=== PATIENT | female | born 1995 | race Caucasian/White ===

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

== ENCOUNTER → 2017-01-09 | Outpatient (REF) | payer BC, MEDICAID ==
[~2017-01-09] MED LIST changes: -COLA100C PO; +COLA100C3 PO
[2017-01-09 17:32] LABS: BASO % 0.2 % (0.0-1.0); EOS # 0.2 K/mm3 (0.0-0.50); EOS % 1.4 % (0.0-3.0); LYMPH # 2.6 K/mm3 (1.5-6.5); MEAN CORPUSCULAR HEMOGLOBIN 29.3 pg (27.0-33.0); MEAN CORPUSCULAR HGB CONC 33.4 g/dl (32.0-36.5); MEAN CORPUSCULAR VOLUME 87.8 fl (80.0-96.0); MONO # 0.4 K/mm3 (0.0-0.8); MONO % 3.3 % (0.0-5.0); NEUTROPHILS # 8.6 K/mm3 (1.8-7.7); RED CELL DISTRIBUTION WIDTH 13.1 % (11.5-14.5)
[2017-01-09 18:30] LABS: FOLATE 5.8 NG/ML; VITAMIN B12 LEVEL 408 PG/ML
[2017-01-09 19:15] LABS: ALBUMIN 3.7 GM/DL (3.2-5.2); ALBUMIN/GLOBULIN RATIO 1.06 (1.00-1.93); ALKALINE PHOSPHATASE 125 U/L (45-117); ALT/SGPT 29 U/L (12-78); ANION GAP 11 MEQ/L (8-16); AST/SGOT 15 U/L (15-37); BILIRUBIN,TOTAL 0.4 MG/DL (0.2-1.0); BLOOD UREA NITROGEN 8 MG/DL (7-18); CALCIUM LEVEL 8.8 MG/DL (8.5-10.1); CARBON DIOXIDE LEVEL 22 MEQ/L (21-32); CHLORIDE LEVEL 104 MEQ/L (98-107); CREATININE FOR GFR 0.56 MG/DL (0.55-1.02); FERRITIN 38 NG/ML (8-252); GLUCOSE, FASTING 63 MG/DL (70-105); MAGNESIUM LEVEL 1.7 MG/DL (1.4-2.0); PHOSPHORUS LEVEL 3.4 MG/DL (2.5-4.9); SODIUM LEVEL 137 MEQ/L (136-145); TOTAL PROTEIN 7.2 GM/DL (6.4-8.2)
[2017-01-12 13:44] LABS: ALBUMIN % 52.9 % (55.8-66.1)
[2017-01-12 13:45] LABS: ALBUMIN 3.81 GM/DL (3.29-5.55); GAMMA GLOBULIN % 15.8 % (11.1-18.8)
[2017-01-13 00:06] LABS: Lyme Disease IgG/IgM Antibodie <0.91 ISR (0.00-0.90); Lyme Disease IgM Ab Quantitati <0.80 index (0.00-0.79)
== END ==
LOC: M LABDRAW1 16:40
PROVIDERS: ATTEND Physician Assistant Medical
DX: R53.83 Other fatigue (principal)

== ENCOUNTER → 2017-03-25 | Outpatient (CLI) | payer BC, MEDICAID ==
[~2017-03-25] MED LIST changes: -COLA100C3 PO; +COLA100C5 PO; -FOLI1TAB2 PO; +FOLI1TAB4 PO; +IBUP-1022 PO; -IBUP600T26 PO; +MICROGESTIN; +PERC5TAB12 PO; -PERC5TAB6 PO
[2017-03-25 18:47] LABS: ALBUMIN 3.7 GM/DL (3.2-5.2); ALKALINE PHOSPHATASE 124 U/L (45-117); ALT/SGPT 32 U/L (12-78); ANION GAP 7 MEQ/L (8-16); AST/SGOT 11 U/L (15-37); BILIRUBIN,TOTAL 0.3 MG/DL (0.2-1.0); BLOOD UREA NITROGEN 9 MG/DL (7-18); CALCIUM LEVEL 9.3 MG/DL (8.5-10.1); CARBON DIOXIDE LEVEL 23 MEQ/L (21-32); CHLORIDE LEVEL 106 MEQ/L (98-107); CREATININE FOR GFR 0.63 MG/DL (0.55-1.02); GLUCOSE, FASTING 83 MG/DL (70-105); POTASSIUM SERUM 3.8 MEQ/L (3.5-5.1); SODIUM LEVEL 136 MEQ/L (136-145); TOTAL PROTEIN 7.4 GM/DL (6.4-8.2)
== END ==
LOC: M LAB 16:21
PROVIDERS: ATTEND Physician Assistant Medical
DX: E27.8 Other specified disorders of adrenal gland (principal)

== ENCOUNTER → 2017-04-25 | Outpatient (REF) | payer BC, MEDICAID ==
[2017-05-10 08:06] LABS: FREE CORTISOL 24HR URINE 12 ug/24 hr (0-50); FREE CORTISOL URINE 27 ug/L (Undefined)
== END ==
LOC: M LAB REF 14:59
PROVIDERS: ATTEND Physician Assistant Medical
DX: E27.8 Other specified disorders of adrenal gland (principal)

== ENCOUNTER → 2017-04-30 | Outpatient (RCR) | payer BC, MEDICAID | LOC: M PT 04-27 13:58 | PROVIDERS: ATTEND Physician Assistant Medical | DX: Z51.89 Encounter for other specified aftercare (principal); M54.5 Low back pain ==

== ENCOUNTER 2017-05-11 11:40 | Emergency (ER) | payer BC, MEDICAID ==
[~2017-05-11] VITALS: Ht 162.6 cm; Wt 106.8 kg
[2017-05-11 11:40] VITALS: BP 157/74
[~2017-05-11 11:40] MED LIST changes: -MICROGESTIN
[2017-05-11] MEDS ORDERED: MICROGESTIN (11:51)
== END 2017-05-11 14:36 | disposition home or self-care (01) ==
LOC: M ED 11:40
DX: R21 Rash and other nonspecific skin eruption (principal); T78.40XA Allergy, unspecified, initial encounter

== ENCOUNTER 2017-05-28 14:30 | Outpatient (RCR) | payer BC, MEDICAID ==
[~2017-05-28 14:30] MED LIST changes: +MICROGESTIN
== END 2017-05-30 ==
LOC: M PT 14:30
PROVIDERS: ATTEND Physician Assistant Medical
DX: Z51.89 Encounter for other specified aftercare (principal); M54.5 Low back pain

== ENCOUNTER → 2017-10-27 | Outpatient (REF) | payer BC, MEDICAID ==
[2017-10-27 18:49] LABS: ALBUMIN 4.1 GM/DL (3.2-5.2); ALBUMIN/GLOBULIN RATIO 1.14 (1.00-1.93); ALKALINE PHOSPHATASE 108 U/L (45-117); ALT/SGPT 29 U/L (12-78); ANION GAP 10 MEQ/L (8-16); AST/SGOT 12 U/L (7-37); BILIRUBIN,TOTAL 0.4 MG/DL (0.2-1.0); BLOOD UREA NITROGEN 8 MG/DL (7-18); CALCIUM LEVEL 8.7 MG/DL (8.5-10.1); CARBON DIOXIDE LEVEL 25 MEQ/L (21-32); CHLORIDE LEVEL 108 MEQ/L (98-107); CREATININE FOR GFR 0.62 MG/DL (0.55-1.30); GLUCOSE, FASTING 84 MG/DL (70-100); POTASSIUM SERUM 3.9 MEQ/L (3.5-5.1); SODIUM LEVEL 143 MEQ/L (136-145); TOTAL PROTEIN 7.7 GM/DL (6.4-8.2)
[2017-10-27 19:19] LABS: BASO % 0.4 % (0.0-1.0); EOS # 0.1 10^3/uL (0.0-0.50); EOS % 1.4 % (0.0-3.0); HEMOGLOBIN 12.8 g/dl (12.0-16.0); IMMATURE GRANULOCYTE % 0.3 % (0-3.0); LYMPH # 2.3 10^3/uL (1.5-6.5); LYMPH % 22.9 % (24.0-44.0); MEAN CORPUSCULAR HGB CONC 33.7 g/dl (32.0-36.5); MONO # 0.6 10^3/uL (0.0-0.8); MONO % 5.7 % (0.0-5.0); NEUTROPHILS # 6.8 10^3/uL (1.8-7.7); NEUTROPHILS % 69.3 % (36.0-66.0); PLATELET COUNT, AUTOMATED 291 10^3/uL (150-450); RED BLOOD COUNT 4.42 10^6/uL (4.00-5.40); RED CELL DISTRIBUTION WIDTH 12.2 % (11.5-14.5); WHITE BLOOD COUNT 9.9 10^3/uL (4.0-10.0)
[2017-10-30 14:36] LABS: ZONISAMIDE LEVEL None Detected ug/mL (10.0-40.0)
== END ==
LOC: M LABNEURO 14:19
DX: R51 Headache (principal)
CPT/HCPCS: 80053

== ENCOUNTER → 2018-01-11 | Outpatient (REF) | payer BC, MEDICAID ==
[2018-01-11 12:59] LABS: BASO % 0.4 % (0.0-1.0); EOS # 0.2 10^3/uL (0.0-0.50); EOS % 2.2 % (0.0-3.0); HEMATOCRIT 39.3 % (36.0-47.0); HEMOGLOBIN 12.9 g/dl (12.0-15.5); IMMATURE GRANULOCYTE % 0.7 % (0-3.0); LYMPH # 2.8 10^3/uL (1.5-6.5); LYMPH % 30.2 % (24.0-44.0); MEAN CORPUSCULAR HEMOGLOBIN 28.9 pg (27.0-33.0); MEAN CORPUSCULAR HGB CONC 32.8 g/dl (32.0-36.5); MEAN CORPUSCULAR VOLUME 87.9 fl (80.0-96.0); MONO # 0.6 10^3/uL (0.0-0.8); MONO % 6.1 % (0.0-5.0); NEUTROPHILS # 5.6 10^3/uL (1.8-7.7); NEUTROPHILS % 60.4 % (36.0-66.0); PLATELET COUNT, AUTOMATED 232 10^3/uL (150-450); RED BLOOD COUNT 4.47 10^6/uL (4.00-5.40); RED CELL DISTRIBUTION WIDTH 12.4 % (11.5-14.5); WHITE BLOOD COUNT 9.4 10^3/uL (4.0-10.0)
[2018-01-11 13:07] LABS: ALBUMIN 3.7 GM/DL (3.2-5.2); ALBUMIN/GLOBULIN RATIO 1.06 (1.00-1.93); ALKALINE PHOSPHATASE 107 U/L (45-117); ALT/SGPT 27 U/L (12-78); ANION GAP 7 MEQ/L (8-16); AST/SGOT 11 U/L (7-37); BILIRUBIN,TOTAL 0.2 MG/DL (0.2-1.0); BLOOD UREA NITROGEN 10 MG/DL (7-18); CALCIUM LEVEL 8.7 MG/DL (8.5-10.1); CARBON DIOXIDE LEVEL 23 MEQ/L (21-32); CHLORIDE LEVEL 112 MEQ/L (98-107); CHOLESTEROL LEVEL 155 MG/DL (<200); CREATININE FOR GFR 0.65 MG/DL (0.55-1.30); GLUCOSE, FASTING 92 MG/DL (70-100); HDL CHOLESTEROL 50 MG/DL (>40); LDL CHOLESTEROL 84.2 MG/DL (<100); NON-HDL-C 105 MG/DL; POTASSIUM SERUM 3.9 MEQ/L (3.5-5.1); SODIUM LEVEL 142 MEQ/L (136-145); TOTAL PROTEIN 7.2 GM/DL (6.4-8.2); TRIGLYCERIDES LEVEL 104 MG/DL (<150)
[2018-01-11 13:42] LABS: HIV 1&2 SCREEN CENTAUR NEGATIVE (NEGATIVE)
[2018-01-11 14:48] LABS: ERYTHROCYTE SEDIMENTATION RATE 13 mm/hr (0-20)
== END ==
LOC: M LAB REF 12:20
DX: R70.0 Elevated erythrocyte sedimentation rate (principal); Z13.220 Encounter for screening for lipoid disorders; F34.1 Dysthymic disorder
CPT/HCPCS: 84443

== ENCOUNTER → 2019-09-21 | Outpatient (CLI) | payer BC, MEDICAID ==
[~2019-09-21] MED LIST changes: +FOLI1TAB11 PO; -FOLI1TAB4 PO
[2019-09-21 12:11] LABS: HEMOGLOBIN A1c 5.1 %
== END ==
LOC: M LAB 09:41
PROVIDERS: ATTEND Surgery
DX: Z86.39 Personal history of other endocrine, nutritional and metabolic disease (principal)

== ENCOUNTER → 2019-10-14 | Outpatient (REF) | payer BC, MEDICAID ==
[2019-10-14 20:24] LABS: CHLAMYDIA DNA AMPLIFICATION NEGATIVE (NEGATIVE); GC DNA AMPLIFICATION NEGATIVE (NEGATIVE)
== END ==
LOC: M LAB REF 18:34
PROVIDERS: ATTEND Physician Assistant
DX: Z12.4 Encounter for screening for malignant neoplasm of cervix (principal)

== ENCOUNTER → 2020-01-09 | Outpatient (CLI) | payer MEDICAID | LOC: M LABSMTC 13:29 | PROVIDERS: ATTEND Family Medicine | DX: Z11.59 Encounter for screening for other viral diseases (principal) | CPT/HCPCS: C8903; U0003 ==

== ENCOUNTER → 2020-04-18 | Outpatient (REF) | payer OTHER, MEDICAID ==
[~2020-04-18] MED LIST changes: +ENOX40IN3; +OMEP-221
[2020-04-18 14:17] LABS: ALT/SGPT 23 U/L (12-78); BILIRUBIN,TOTAL 0.5 MG/DL (0.2-1.0); BLOOD UREA NITROGEN 9 MG/DL (7-18); CALCIUM LEVEL 9.4 MG/DL (8.5-10.1); CARBON DIOXIDE LEVEL 28 MEQ/L (21-32); CHLORIDE LEVEL 104 MEQ/L (98-107); CHOLESTEROL LEVEL 168 MG/DL (<200); CHOLESTEROL RISK RATIO 4.307 (<5); CREATININE FOR GFR 0.66 MG/DL (0.55-1.30); GLOMERULAR FILTRATION RATE > 60.0 (>60); GLUCOSE, FASTING 88 MG/DL (70-100); HDL CHOLESTEROL 39 MG/DL (>40); LDL CHOLESTEROL 98 MG/DL (<100); NON-HDL-C 129 MG/DL; SODIUM LEVEL 136 MEQ/L (136-145); TOTAL PROTEIN 7.6 GM/DL (6.4-8.2); TRIGLYCERIDES LEVEL 157 MG/DL (<150)
[2020-04-18 14:21] LABS: BASO % 0.4 % (0.0-1.0); EOS # 0.2 10^3/uL (0.0-0.5); EOS % 2.5 % (0.0-3.0); HEMATOCRIT 38.9 % (36.0-47.0); HEMOGLOBIN 12.9 g/dl (12.0-15.5); LYMPH # 1.6 10^3/uL (1.5-5.0); LYMPH % 22.1 % (24.0-44.0); MEAN CORPUSCULAR HEMOGLOBIN 29.5 pg (27.0-33.0); MEAN CORPUSCULAR HGB CONC 33.2 g/dl (32.0-36.5); MEAN CORPUSCULAR VOLUME 88.8 fl (80.0-96.0); MONO # 0.4 10^3/uL (0.0-0.8); MONO % 6.2 % (0.0-5.0); NEUTROPHILS # 4.9 10^3/uL (1.5-8.5); NEUTROPHILS % 68.2 % (36.0-66.0); PLATELET COUNT, AUTOMATED 262 10^3/uL (150-450); RED BLOOD COUNT 4.38 10^6/uL (4.00-5.40); WHITE BLOOD COUNT 7.1 10^3/uL (4.0-10.0)
== END ==
LOC: M LAB REF 11:47
PROVIDERS: ATTEND Nurse Practitioner Family
DX: Z01.812 Encounter for preprocedural laboratory examination (principal); E66.09 Other obesity due to excess calories

== ENCOUNTER 2020-05-06 19:58 | Emergency (ER) | payer OTHER, MEDICAID ==
[~2020-05-06 19:58] MED LIST changes: -ENOX40IN3; -OMEP-221
[2020-05-06] MEDS ORDERED: PROTAMINE SULF 50MG/5ML VIAL (J2720 PER 10MG) IV STA (20:21)
[2020-05-06 20:43] LABS: BASO % 0.2 % (0.0-1.0); EOS # 0.1 10^3/uL (0.0-0.5); EOS % 0.8 % (0.0-3.0); HEMATOCRIT 33.4 % (36.0-47.0); HEMOGLOBIN 11.6 g/dl (12.0-15.5); LYMPH # 1.9 10^3/uL (1.5-5.0); LYMPH % 13.1 % (24.0-44.0); MEAN CORPUSCULAR HEMOGLOBIN 29.4 pg (27.0-33.0); MEAN CORPUSCULAR HGB CONC 34.7 g/dl (32.0-36.5); MEAN CORPUSCULAR VOLUME 84.6 fl (80.0-96.0); MONO # 0.9 10^3/uL (0.0-0.8); MONO % 6.1 % (0.0-5.0); NEUTROPHILS # 11.5 10^3/uL (1.5-8.5); NEUTROPHILS % 79.2 % (36.0-66.0); PLATELET COUNT, AUTOMATED 338 10^3/uL (150-450); RED BLOOD COUNT 3.95 10^6/uL (4.00-5.40); WHITE BLOOD COUNT 14.5 10^3/uL (4.0-10.0)
[2020-05-06] MEDS ORDERED: NITROGLYCERIN 2% OINT 1 GM *U/D* PKT TOP ONE (20:45)
[2020-05-06] MEDS ORDERED: FUROSEMIDE 100MG/10ML VIAL (J1940) IV ONE (20:45)
[2020-05-06 20:54] LABS: INR 1.16; PROTHROMBIN TIME 15.1 SECONDS (11.8-14.0)
[2020-05-06 20:55] LABS: PARTIAL THROMBOPLASTIN TIME 31.1 SECONDS (25.0-38.4)
[2020-05-06 20:58] LABS: BLOOD UREA NITROGEN 14 MG/DL (7-18); CALCIUM LEVEL 8.9 MG/DL (8.5-10.1); CARBON DIOXIDE LEVEL 17 MEQ/L (21-32); CHLORIDE LEVEL 109 MEQ/L (98-107); CREATININE FOR GFR 0.62 MG/DL (0.55-1.30); GLOMERULAR FILTRATION RATE > 60.0 (>60); GLUCOSE, FASTING 84 MG/DL (70-100); NT-PRO BNP < 5 PG/ML (<125); POTASSIUM SERUM 3.6 MEQ/L (3.5-5.1); SODIUM LEVEL 140 MEQ/L (136-145)
[2020-05-06] MEDS ORDERED: ENOX40IN3 (21:00)
[2020-05-06] MEDS ORDERED: OMEP-221 (21:00)
[2020-05-06] MEDS ORDERED: NS 1,000 ML IV ONE ×2 (21:45→22:15)
[2020-05-06 22:05] VITALS: BP 108/58
[2020-05-06 22:20] VITALS: BP 133/76
[2020-05-06 22:55] VITALS: BP 113/55
[2020-05-06 23:05] VITALS: BP 128/70
[2020-05-06 23:16] VITALS: BP 128/70
[2020-05-06 23:52] VITALS: BP 146/76
== END 2020-05-07 00:18 | disposition short-term general hospital (02) ==
LOC: M ED 19:58
DX: K92.2 Gastrointestinal hemorrhage, unspecified (principal); I95.89 Other hypotension; Z79.01 Long term (current) use of anticoagulants; Z98.84 Bariatric surgery status; Z79.899 Other long term (current) drug therapy
CPT/HCPCS: 36430; 80048; 83880; 85025; 85610; 85730; 86850; 86900; 86901; 86920; 86927; 96361; 96374; 96375; 99291; 99292; J2720; P9016; P9017

== ENCOUNTER → 2020-10-24 | Outpatient (REF) | payer MEDICAID ==
[~2020-10-24] MED LIST changes: +ENOX40IN3; +OMEP-221
== END ==
LOC: M PLALAB 14:59
PROVIDERS: ATTEND Obstetrics & Gynecology
DX: O99.841 Bariatric surgery status complicating pregnancy, first trimester (principal); Z3A.00 Weeks of gestation of pregnancy not specified; Z53.9 Procedure and treatment not carried out, unspecified reason

== ENCOUNTER → 2020-11-27 | Outpatient (REF) | payer OTHER, MEDICAID ==
[2020-11-27 13:37] LABS: HEMATOCRIT 39.3 % (36.0-47.0); HEMOGLOBIN 13.1 g/dl (12.0-15.5); MEAN CORPUSCULAR HEMOGLOBIN 29.7 pg (27.0-33.0); MEAN CORPUSCULAR HGB CONC 33.3 g/dl (32.0-36.5); MEAN CORPUSCULAR VOLUME 89.1 fl (80.0-96.0); PLATELET COUNT, AUTOMATED 195 10^3/uL (150-450); RED BLOOD COUNT 4.41 10^6/uL (4.00-5.40); WHITE BLOOD COUNT 8.3 10^3/uL (4.0-10.0)
[2020-11-27 14:10] LABS: TOTAL PROTEIN,RANDOM URINE 16.4 MG/DL (0.0-12.0)
[2020-11-27 14:13] LABS: ALT/SGPT 21 U/L (12-78); BILIRUBIN,TOTAL 0.3 MG/DL (0.2-1.0); CREATININE FOR GFR 0.53 MG/DL (0.55-1.30); GLOMERULAR FILTRATION RATE > 60.0 (>60); GLUCOSE CHALLENGE TEST 1 HOUR 94 MG/DL (LESS THAN 140); LDH LACTATE DEHYDROGENASE 110 U/L (84-246); URIC ACID 2.6 MG/DL (2.6-6.0)
[2020-11-27 14:24] LABS: TOTAL 25(OH) VITAMIN D 12.8 NG/ML (30.0-100.0)
[2020-11-27 14:25] LABS: VITAMIN B12 LEVEL 296 PG/ML (247-911)
[2020-11-27 14:37] LABS: FOLATE > 24.0 NG/ML (>5.4)
[2020-11-27 15:03] LABS: CHLAMYDIA DNA AMPLIFICATION NEGATIVE (NEGATIVE); GC DNA AMPLIFICATION NEGATIVE (NEGATIVE); HEPATITIS C VIRUS ABY INDEX < 0.0 INDEX (<0.8)
[2020-11-27 15:04] LABS: HIV 1&2 SCREEN CENTAUR NEGATIVE (NEGATIVE)
== END ==
LOC: M PLALAB 09:02
PROVIDERS: ATTEND Obstetrics & Gynecology
DX: O99.841 Bariatric surgery status complicating pregnancy, first trimester (principal)

== ENCOUNTER → 2020-12-14 | Outpatient (REF) | payer OTHER, MEDICAID ==
[2020-12-19 15:12] LABS: HSV TYPE I IgG SPECIFIC <0.91 index (0.00-0.90); HSV TYPE I IgM AB <1:10 titer (<1:10); HSV TYPE II IgG SPECIFIC <0.91 index (0.00-0.90); HSV TYPE II IgM ABY <1:10 titer (<1:10)
== END ==
LOC: M PLALAB 15:39
PROVIDERS: ATTEND Advanced Practice Midwife
DX: A60.04 Herpesviral vulvovaginitis (principal)

== ENCOUNTER → 2021-02-01 | Outpatient (CLI) | payer OTHER, MEDICAID ==
--- NOTE | 2021-02-03 18:23 | REP ---
INDICATION: ANATOMY COMPARISON: None. TECHNIQUE: Transabdominal obstetrical ultrasound with color Doppler evaluation. FINDINGS: Examination demonstrates a single live intrauterine in cephalic presentation. motion is identified by technologist. Placenta is noted posterior and grade 0 without evidence for placenta previa or abruption. Amniotic fluid volume is normal. Cervix measures 3.1 cm in length and appears closed.. Selected gestational age: 20 weeks 3 days with LESLIE 06/18/2021. Gestational age by current measurements 20 weeks 3 days with LESLIE 06/18/2021. FHR equals 156 beats per minute. Estimated weight 350 grams (43rdpercentile). Anatomical assessment demonstrates normal structures including cranium, choroid plexus, cavum, cerebellum/posterior fossa, facial features, lungs, diaphragm, stomach, cord insertion/three-vessel cord, kidneys/bladder, spine, and extremities. IMPRESSION: Single live intrauterine in cephalic presentation demonstrating appropriate estimated weight. Limited evaluation of the heart/ventricular outflow tracts noted. Remainder of the anatomical assessment is complete and normal. <Electronically signed by Ras Ring > 02/03/21 [id number]
== END ==
LOC: M WHC 07:59
PROVIDERS: ATTEND Specialist
DX: Z34.82 Encounter for supervision of other normal pregnancy, second trimester (principal); Z3A.20 20 weeks gestation of pregnancy

== ENCOUNTER → 2021-03-13 | Outpatient (CLI) | payer OTHER, MEDICAID ==
[2021-03-13 13:45] LABS: HEMATOCRIT 33.2 % (36.0-47.0); HEMOGLOBIN 10.7 g/dl (12.0-15.5); MEAN CORPUSCULAR HEMOGLOBIN 30.1 pg (27.0-33.0); MEAN CORPUSCULAR HGB CONC 32.2 g/dl (32.0-36.5); MEAN CORPUSCULAR VOLUME 93.3 fl (80.0-96.0); PLATELET COUNT, AUTOMATED 200 10^3/uL (150-450); RED BLOOD COUNT 3.56 10^6/uL (4.00-5.40); WHITE BLOOD COUNT 7.8 10^3/uL (4.0-10.0)
== END ==
LOC: M PLALAB 08:26
PROVIDERS: ATTEND Advanced Practice Midwife
DX: Z34.92 Encounter for supervision of normal pregnancy, unspecified, second trimester (principal); Z3A.24 24 weeks gestation of pregnancy

== ENCOUNTER → 2021-03-13 | Outpatient (CLI) | payer OTHER, MEDICAID ==
--- NOTE | 2021-03-13 09:09 | REP ---
INDICATION: F/U ANATOMY COMPARISON: 02/01/2021 TECHNIQUE: Transabdominal obstetrical ultrasound with color Doppler evaluation. FINDINGS: Examination demonstrates a single live intrauterine in breech presentation. motion is identified by technologist. Placenta is noted posterior and grade 1 without evidence for placenta previa or abruption. Amniotic fluid volume is normal. Cervix measures 3.4 cm in length and appears closed.. Selected gestational age: 26 weeks 1 day with LESLIE 06/18/2021. Gestational age by current measurements 26 weeks 2 days with LESLIE 06/17/2021. FHR equals 143 beats per minute. Estimated weight 930 grams (49thpercentile). Anatomical assessment demonstrates normal structures including cranium, choroid plexus, cavum, cerebellum/posterior fossa, facial features, lungs, four-chamber heart/ventricular outflow tracts, diaphragm, stomach, cord insertion/three-vessel cord, kidneys/bladder, spine, and extremities. IMPRESSION: Single live intrauterine in breech presentation demonstrating appropriate estimated weight and growth. In conjunction with prior examination anatomical assessment is complete and normal. <Electronically signed by Ras Ring > 03/13/21 0911
== END ==
LOC: M WHC 06:25
PROVIDERS: ATTEND Advanced Practice Midwife
DX: Z36.9 Encounter for antenatal screening, unspecified (principal); Z3A.26 26 weeks gestation of pregnancy

== ENCOUNTER → 2021-03-26 | Outpatient (CLI) | payer OTHER, MEDICAID | LOC: M WHC 09:46 | PROVIDERS: ATTEND Obstetrics & Gynecology | DX: Z34.83 Encounter for supervision of other normal pregnancy, third trimester (principal); Z3A.28 28 weeks gestation of pregnancy ==

== ENCOUNTER → 2021-04-23 | Outpatient (CLI) | payer OTHER, MEDICAID ==
--- NOTE | 2021-04-23 13:06 | REP ---
INDICATION: GROWTH/BARIATRIC SURGERY STATUS. TECHNIQUE: Transabdominal scanning FINDINGS: Multiple ultrasonographic images of the gravid uterus shows a single living intrauterine gestation in the cephalic presentation. Doppler interrogation of the heart shows a heart rate of 143 beats per minute. The placenta is posterior and not low-lying. The cervix measures 3.8 cm in length and is closed. The subjective amniotic fluid volume is within normal limits. The calculated amniotic fluid index is 14.6 with an expected range 8.6-24.2. Doppler interrogation of the umbilical artery shows an A\B ratio of 3.37. This is within the normal range. BPD: 7.8 cm 31 weeks 2 days HC: 29.1 cm 32 weeks 0 days AC: 28.0 cm 32 weeks 0 days FL: 6.2 cm 32 weeks 1 day The estimated weight is 1876 g which is at the 38th percentile for a 32 week 0 day gestational age. IMPRESSION: Single living intrauterine gestation as described above with an estimated gestational age of 31 weeks 6 days via composite criteria and an estimated date of delivery of 06/19/2021 by today's exam. <Electronically signed by Juma Canales > 04/23/21 [id number]
== END ==
LOC: M WHC 10:56
PROVIDERS: ATTEND Obstetrics & Gynecology
DX: O99.843 Bariatric surgery status complicating pregnancy, third trimester (principal); Z3A.31 31 weeks gestation of pregnancy

== ENCOUNTER 2021-05-05 23:30 | Outpatient (CLI) | payer OTHER, MEDICAID ==
[~2021-05-05] VITALS: Ht 162.6 cm; Wt 80.7 kg
[2021-05-05 23:49] VITALS: BP 136/65
[2021-05-06 00:34] LABS: HEMATOCRIT 31.3 % (36.0-47.0); HEMOGLOBIN 10.3 g/dl (12.0-15.5); MEAN CORPUSCULAR HEMOGLOBIN 28.8 pg (27.0-33.0); MEAN CORPUSCULAR HGB CONC 32.9 g/dl (32.0-36.5); MEAN CORPUSCULAR VOLUME 87.4 fl (80.0-96.0); PLATELET COUNT, AUTOMATED 175 10^3/uL (150-450); RED BLOOD COUNT 3.58 10^6/uL (4.00-5.40); WHITE BLOOD COUNT 6.7 10^3/uL (4.0-10.0)
[2021-05-06 01:02] LABS: ALBUMIN 2.7 GM/DL (3.2-5.2); ALT/SGPT 16 U/L (12-78); AMYLASE 32 U/L (25-115); BILIRUBIN,TOTAL 0.3 MG/DL (0.2-1.0); BLOOD UREA NITROGEN 5 MG/DL (7-18); CALCIUM LEVEL 8.4 MG/DL (8.5-10.1); CARBON DIOXIDE LEVEL 24 MEQ/L (21-32); CHLORIDE LEVEL 105 MEQ/L (98-107); CREATININE FOR GFR 0.48 MG/DL (0.55-1.30); GLOMERULAR FILTRATION RATE > 60.0 (>60); GLUCOSE, FASTING 83 MG/DL (70-100); LIPASE 105 U/L (73-393); POTASSIUM SERUM 3.7 MEQ/L (3.5-5.1); SODIUM LEVEL 138 MEQ/L (136-145); TOTAL PROTEIN 6.2 GM/DL (6.4-8.2)
[2021-05-06] MEDS ORDERED: ACETAMINOPHEN 500 MG TAB PO ONE (02:30)
--- NOTE | 2021-05-06 03:35 | REPVR ---
PROCEDURE INFORMATION: Exam: US Abdomen, Limited; Right Upper Quadrant Exam date and time: 05/06/2021 3:07 AM Age: 25 years old Clinical indication: Abdominal pain; Acute; ; Additional info: Upper abdominal pain TECHNIQUE: Imaging protocol: US abdomen. Real time ultrasound with image documentation. Limited exam focused on the right upper quadrant. COMPARISON: CT ABD PELVIS WITH CONTRAST 03/29/2016 2:31 AM FINDINGS: Liver: Liver is homogeneous in echotexture, with no focal lesion. Gallbladder: Gallbladder contains multiple mobile intraluminal shadowing echogenic foci suggesting gallstones. No wall thickening. Gallbladder wall measures 2 mm. No adjacent fluid.. Common bile duct: Common bile duct measures 4 mm in diameter. Pancreas: Pancreas is sonographically normal. Main pancreatic duct measures 1.6 mm, normal Right kidney: Right kidney measures 12.6 cm in long axis. Right kidney appears normal. Intraperitoneal space: No free fluid. IMPRESSION: Cholelithiasis without evidence of biliary obstruction or acute cholecystitis. Electronically signed by: Cirilo Steel On 05/06/2021 03:34:58 AM
--- NOTE | 2021-05-06 03:35 | IPNPDOC ---
Obstetrical Progress Note Date of Service May 06, 2021 Subjective 25-year-old -0-0-1 at 33+6 weeks gestation. She presents with a history of upper abdominal/ epigastric pain for the past 24 hours. She also had a reported fever at home and took Tylenol. She said several episodes of nausea vomiting today. Denies diarrhea. States her pain is increased when she eats. Reports regular movement. Denies painful frequent uterine contractions, although she is having occasional [place]. Denies any vaginal bleeding or loss of fluid. PMH/SH: Yojana en Y , LTCS x 1 OBHx: G1, GHTN, GDM, PLTCS for arrest of descent MILL HAND: SV (outbreak at 13 weeks) Objective Vital Signs Date Time Temp Pulse Resp B/P (MAP) Pulse Ox O2 Delivery O2 Flow Rate FiO2 05/06/21 02:25 98.7 18 05/05/21 23:53 99 Room Air 05/05/21 23:49 75 136/65 (88) Gen: A&Ox 4 H: RRR L: CTA b/l Abd: +Rodriguez's, FH c/w/d, no guarding or rebound tenderness, non-distended No CVAT Ext:no c/c/e Item Value Date Time Red Blood Count 3.58 10^6/uL L 05/06/21 0029 White Blood Count 6.7 10^3/uL 05/06/21 0029 Hemoglobin 10.3 g/dl L 05/06/21 0029 Hematocrit 31.3 % L 05/06/21 0029 Platelet Count 175 10^3/uL 05/06/21 0029 Aspartate Amino Transf (AST/SGOT) 11 U/L 05/06/21 0029 Alanine Aminotransferase (ALT/SGPT) 16 U/L 05/06/21 0029 Amylase Level 32 U/L 05/06/21 0029 Lipase 105 U/L 05/06/21 0029 Creatinine 0.48 MG/DL L 05/06/21 0029 Total Bilirubin 0.3 MG/DL 05/06/21 0029 Coronavirus (COVID-19)(PCR) NEGATIVE 05/05/21 4952 Imaging: Right Upper Quadrant US: "Cholelithiasis without evidence of biliary obstruction or acute cholecystitis". See official report for more details. Assessment Heart Rate Tracing: Category I Tocometer Contractions: No (BH detected on monitor) Assessment and Plan Additional Comments 25yo at 33+6 weeks, now with new dx of cholelithiasis. Reassuring status. -Dietary precautions reviewed -Surgical management discussed; likely to be postponed until given that she is well into the third trimester -Start Ursodiol 300mg TID. -Fever, infectious, pain, bleeding precautions and third TM precautions reviewed. -Follow up with PN appointments as scheduled. DO KATIE Rodrigues JONATHAN R. DO May 06, 2021 03:35
[2021-05-06] MEDS ORDERED: ursodioL 300 MG CAP PO ONE (03:45)
[2021-05-06] MEDS ORDERED: URSO300C3 PO (04:02)
[2021-05-06 04:11] VITALS: BP 139/66
== END 2021-05-06 04:06 | disposition home or self-care (01) ==
LOC: M LDO 23:30
PROVIDERS: ATTEND Obstetrics & Gynecology
DX: O99.613 Diseases of the digestive system complicating pregnancy, third trimester (principal); K81.9 Cholecystitis, unspecified; O34.211 Maternal care for low transverse scar from previous cesarean delivery; Z3A.33 33 weeks gestation of pregnancy; Z87.59 Personal history of other complications of pregnancy, childbirth and the puerperium
CPT/HCPCS: 36415; 59025; 76705; 80053; 82150; 83690; 85027; G0378; G0463; U0002

== ENCOUNTER → 2021-05-23 | Outpatient (REF) | payer OTHER, MEDICAID ==
[~2021-05-23] MED LIST changes: +URSO300C3 PO
== END ==
LOC: M SFHCWAGY 17:00
PROVIDERS: ATTEND Advanced Practice Midwife
DX: O99.843 Bariatric surgery status complicating pregnancy, third trimester (principal); Z3A.00 Weeks of gestation of pregnancy not specified

== ENCOUNTER → 2021-05-24 | Outpatient (CLI) | payer OTHER, MEDICAID ==
--- NOTE | 2021-05-24 10:53 | REP ---
INDICATION: GROWTH, BARIATRIC SURGER STATUS COMPLICATING . COMPARISON: 04/23/2021 TECHNIQUE: Transabdominal scanning FINDINGS: Multiple ultrasonographic images of the gravid uterus shows a single living intrauterine gestation in the cephalic presentation. Doppler interrogation of the heart shows a heart rate of 172 beats per minute. The placenta is posterior and not low-lying. The cervix measures 3.1 cm in length and is closed. The subjective amniotic fluid volume is within normal limits. The calculated amniotic fluid index is 21.3 with an expected range of 7.6-24.7. BPD: 9 cm 36 weeks 3 days HC: 32.5 cm 36 weeks 6 days AC: 33.0 cm 36 weeks 6 days FL: 7.1 cm 36 weeks 4 days The estimated weight is 3025 g which is at the 62nd percentile for a 36 week 3 day gestational age. IMPRESSION: Limited OB ultrasound, as described above, showing a single living intrauterine gestation with an estimated gestational age of 36 weeks 5 days via composite criteria and an estimated date of delivery of 06/16/2021 by today's exam. <Electronically signed by Juma Canales > 05/24/21 1596
== END ==
LOC: M WHC 09:53
PROVIDERS: ATTEND Advanced Practice Midwife
DX: O99.843 Bariatric surgery status complicating pregnancy, third trimester (principal); Z3A.36 36 weeks gestation of pregnancy

== ENCOUNTER 2021-06-11 09:51 | Inpatient (IN) | payer OTHER, MEDICAID ==
[2021-06-11] VITALS (41 sets, daily range): BP systolic 105–153; BP diastolic 52–85
[~2021-06-11] VITALS: Ht 162.6 cm; Wt 81.3 kg
[2021-06-11] MEDS ORDERED: VALT500T PO (10:15)
[2021-06-11] MEDS ORDERED: HOME MED LIST COMPLETE! XX SCH (10:15)
[2021-06-11] MEDS ORDERED: MULTTAB20 PO (10:15)
[2021-06-11] MEDS ORDERED: LACTATED RINGER'S 1000 ML IV STA (12:48)
[2021-06-11] MEDS ORDERED: OXYTOCIN DRIP 30 UNITS in IV 1 EA IV PRN (12:50)
[2021-06-11] MEDS ORDERED: TRANEXAMIC ACID INJection 1,000 MG in NS 100 ML IV PRN (12:50)
[2021-06-11] MEDS ORDERED: METHYLERGONOVINE MALEATE 0.2 MG/ML VIAL (J2210) IM PRN (12:50)
[2021-06-11] MEDS ORDERED: LR 1,000 ML IV SCH (12:50)
[2021-06-11] MEDS ORDERED: CARBOPROST TROMETHAMINE 250 MCG/ML AMP IM PRN (12:50)
--- NOTE | 2021-06-11 12:59 | HPEPDOC ---
Obstetrical History & Physical General Date of Admission Jun 11, 2021 at 12:49 History of Present Illness Patient is a 26-year-old -0-0-1 at 39 weeks and 0 days estimated gestationa l age who presents to labor and delivery in active labor. Denies leaking of fluid or vaginal bleeding reports positive movement. During triage evaluation patient may change from 4/80/-2 to 5/100/-1. Chief Complaint: Contractions, term Age: 26 : 2 Term: 1 Pre-term: 0 Abortions: 0 Livin Care Care: Good Care Dating Final EDC: Jun 18, 2021 Antepartum Course Diagnos(e)s 1. Cholelithiasis 2. History of section for arrest of descent 3. History of gastric bypass 4. History of gestational diabetes and gestational hypertension in G1 5. 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 History: Herpes simplex virus(HSV) Past Medical History Surgical History: section, Other (marita n y ) Family History Significant Family History: No pertinent family hx Social History Marital Status: Family situation: Spouse/partner home * Smoker: non-smoker Alcohol: Denies Drugs: denies Abuse Violence Screening Have you been hit/kicked/slapp: No Have you been sexually assault: No Allergies Coded Allergies: No Known Allergies (Unverified , 03/15/16) Medications Scheduled No122/Iron/Folic Acid ( Multi Tablet) 1 Each Tablet, 1 TAB PO DAILY Ursodiol (Ursodiol) 300 Mg Capsule, 300 MG PO TID Valacyclovir HCl (Valtrex) 500 Mg Tablet, 1 TAB PO DAILY Physical Examination Physical Examination GENERAL: Alert and oriented times three. BREAST: . ABDOMEN: Gravid and non-tender to touch. FETUS: Is vertex (VTX) by sterile vaginal examination. HEART RATE: Regular rate and rhythm. LUNGS: Clear to auscultation (CTA). EXTREMITIES: No edema. No clonus. SVE: 4/80/-2 to 5/100/-1 Vital Signs/I&O Vital Signs Date Time Temp Pulse Resp B/P (MAP) Pulse Ox O2 Delivery O2 Flow Rate FiO2 06/11/21 11:52 53 121/74 (90) 06/11/21 10:10 98.4 16 Pertinent Laboratoy Data Blood Type: O+ RBC Antibody Screen: Negative HIV: Negative Hepatitis B: Negative Hepatitis C: Negative Rapid Plasma Reagin: Nonreactive Rubella: Immune Chlamydia/Gonorrhea: Negative Group B Streptococcus: Negative Glucose Tolerance Test: 129 Vaginal Examination Dilation: 5 cm Effacement: 100% Station: -1 Cervical Consistency: Soft Cervical Position: Middle Assessment Heart Rate (FHR): 140 Variability: Moderate Accelerations: Positive Decelerations: None Tocometer Contractions: Yes Frequency: regular, every 1-5 min. Assessment/Plan Assessment Patient is a 26-year-old (G)2 para (P) 1001 at 39.0 weeks. Presents to Labor and Delivery (L&D) in labor Plan Admit and orient. 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 Diet: clear liquid. Group B Streptococcus (GBS) negative. Labs and intravenous (IV) per unit protocol. Counseled on Pitocin and induction of labor (IOL). Lactated Ringers (LR): Bolus 1000 mL, then at 125 mL/hr. Anticipate . C-S as appropriate. Epidural PRN SARA HINES MD Jun 11, 2021 12:59
[2021-06-11 13:18] LABS: HEMATOCRIT 34.5 % (36.0-47.0); HEMOGLOBIN 11.4 g/dl (12.0-15.5); MEAN CORPUSCULAR HEMOGLOBIN 28.1 pg (27.0-33.0); PLATELET COUNT, AUTOMATED 199 10^3/uL (150-450); RED BLOOD COUNT 4.06 10^6/uL (4.00-5.40); WHITE BLOOD COUNT 13.2 10^3/uL (4.0-10.0)
[2021-06-11] MEDS ORDERED: FENTANYL 2MCG/ML ROPIVACAINE 0.2% IN 0.9% NACL 100ML IVBAG As Ordered ONE (13:34)
[2021-06-11] MEDS ORDERED: ePHEDrine SULFATE 25 MG/5 ML(5MG/ML) SYRINGE IV PRN (15:20)
[2021-06-11] MEDS ORDERED: EPIDURAL COMMENT XX SCH (15:20)
[2021-06-11] MEDS ORDERED: EPIDURAL/PCA KEYS XX PRN (15:20)
[2021-06-11] MEDS ORDERED: REFRIGERATOR IV KEYS XX PRN (15:20)
[2021-06-11] MEDS ORDERED: FENTANYL/ROPIVACAINE/NACL BAG 100 ML EPIDURAL SCH (15:20)
[2021-06-11] MEDS ORDERED: diphenhydrAMINE 50MG/ML VIAL (J1200) IV PRN (15:20)
[2021-06-11] MEDS ORDERED: LACTATED RINGER'S 1000 ML IV PRN (15:20)
[2021-06-11] MEDS ORDERED: NALOXONE INJ 0.4MG/1ML VIAL (J2310 PER 1MG) IV PRN (15:20)
[2021-06-11] MEDS ORDERED: ONDANSETRON 4MG/2ML VIAL IV PRN (15:20)
--- NOTE | 2021-06-11 16:45 | IPNPDOC ---
Obstetrical Progress Note Date of Service Jun 11, 2021 Subjective Pt comfortable after epidural Objective Vital Signs Date Time Temp Pulse Resp B/P (MAP) Pulse Ox O2 Delivery O2 Flow Rate FiO2 06/11/21 16:22 75 122/67 (85) 06/11/21 15:41 97.4 06/11/21 10:10 16 Assessment Heart Rate (FHR): 120 Variability: Moderate Accelerations: Positive Decelerations: None Heart Rate Tracing: Category I Tocometer Contractions: Yes Frequency: regular Sterile Vaginal Examination Dilation: 9 cm Effacement (%): 100% Station: +1 Postion/Presentation: Cephalic presentation Assessment and Plan Status: Reassuring Group B Streptococcus: Negative Anticipate: Vaginal Delivery (AROM'ed for thick mec at this time) SARA HINES MD Jun 11, 2021 16:45
--- NOTE | 2021-06-11 20:49 | DNPDOC ---
[facility] Delivery Note Delivery Note DATE OF DELIVERY: 06/11/2021 PREDELIVERY DIAGNOSIS: 39-0/7 weeks' gestation and labor. POST DELIVERY DIAGNOSIS: Delivered. PROCEDURE: Vaginal after . VISCERA WASHER: Dr. Sara Hines ANESTHESIA: Epidural. ESTIMATED BLOOD LOSS: 400 mL. FINDINGS: 6 pound 13 ounce female infant, Score 8/9 DELIVERY SUMMARY: Patient is a 26-year-old 2 now para 2001 who was admitted to labor and delivery for contractions. She was evaluated in triage and made cervical change and was admitted to labor and delivery for labor. Patient progressed and received an epidural. Once she was comfortable she was AROM for meconium and was 9 cm at that time. When the patient began to feel more pelvic pressure she was checked again and found to be completely dilated and +2 station. She did 1 practice push and the baby progressed to +3 station. The bed with that for delivery. She pushed over the course of 1 contraction and delivered the infant's head. The baby was delivered in the RODERICK position and the infant body was delivered without difficulty. After a 60sec delay, the cord was clamped and cut. Three vessel cord noted. Cord blood collected. The placenta was delivered intact with fundal massage and expression. She had a right labial tear which was repaired with 4.0 vicryl suture with a 3.0 chromic figure of eight suture. Adequate hemostasis noted. Sponge and sharp count correct. SARA HINES MD Jun 11, 2021 20:49
[2021-06-11] MEDS ORDERED: METHYLERGONOVINE MALEATE 0.2 MG TAB PO PRN (21:00)
[2021-06-11] MEDS ORDERED: OXYTOCIN DRIP 30 UNITS in IV 1 EA IV SCH (21:00)
[2021-06-11] MEDS ORDERED: IBUPROFEN 600MG TAB PO PRN (21:00)
[2021-06-11] MEDS ORDERED: DOCUSATE SODIUM 100MG CAPSULE PO PRN (21:00)
[2021-06-11] MEDS ORDERED: RHOGAM 300 MCG (1500 IU) INJ (J2790) IM SCH (21:00)
[2021-06-11] MEDS ORDERED: MEASLES,MUMPS,RUBELLA VACCINE INJ (MMR-II) (90707) SC SCH (21:00)
[2021-06-11] MEDS ORDERED: DIBUCAINE 1% OINTMENT 30GM TOP PRN (21:00)
[2021-06-11] MEDS ORDERED: ACETAMINOPHEN 500 MG TAB PO PRN (21:00)
[2021-06-12 06:18] VITALS: BP 128/68
[2021-06-12] MEDS: PRENATAL VITAMINS CHEWABLE TABLET PO SCH (07:57)
[2021-06-12 09:05] LABS: HEMATOCRIT 27.9 % (36.0-47.0); MEAN CORPUSCULAR HEMOGLOBIN 27.8 pg (27.0-33.0); MEAN CORPUSCULAR HGB CONC 32.6 g/dl (32.0-36.5); MEAN CORPUSCULAR VOLUME 85.3 fl (80.0-96.0); PLATELET COUNT, AUTOMATED 161 10^3/uL (150-450); RED BLOOD COUNT 3.27 10^6/uL (4.00-5.40); WHITE BLOOD COUNT 12.9 10^3/uL (4.0-10.0)
[2021-06-12 09:07] LABS: HEMOGLOBIN 9.1 g/dl (12.0-15.5)
[2021-06-12] MEDS ORDERED: INFLUENZA QUADRIVALENT PF VACCINE 0.5ML SYRINGE IM ONE (10:00)
[2021-06-12] MEDS ORDERED: diphenhydrAMINE 50MG CAP PO ONE (16:30)
[2021-06-12 18:00] VITALS: BP 124/62
[2021-06-13 06:00] VITALS: BP 109/60
[2021-06-13] MEDS: PRENATAL VITAMINS CHEWABLE TABLET PO SCH (08:26)
[2021-06-13 18:00] VITALS: BP 105/56
== END 2021-06-13 19:05 | disposition home or self-care (01) | DRG 560 ==
LOC: M LDO 09:51 → M LDI 12:49 → M OBS 22:27
PROVIDERS: ADMIT Obstetrics & Gynecology; ATTEND Obstetrics & Gynecology
PROC: 10E0XZZ Delivery of Products of Conception, External Approach (ICD-10-PCS; principal; 2021-06-11)
PROC: 10907ZC Drainage of Amniotic Fluid, Therapeutic from Products of Conception, Via Natural or Artificial Opening (ICD-10-PCS; 2021-06-11)
PROC: 0HQ9XZZ Repair Perineum Skin, External Approach (ICD-10-PCS; 2021-06-11)
DX: O34.219 Maternal care for unspecified type scar from previous cesarean delivery (principal); Z3A.39 39 weeks gestation of pregnancy; Z37.0 Single live birth; O99.844 Bariatric surgery status complicating childbirth; O98.52 Other viral diseases complicating childbirth; B00.1 Herpesviral vesicular dermatitis; O77.0 Labor and delivery complicated by meconium in amniotic fluid; O70.0 First degree perineal laceration during delivery

== ENCOUNTER → 2021-07-06 | Outpatient (CLI) | payer MEDICAID ==
[~2021-07-06] MED LIST changes: +MULTTAB20 PO; +VALT500T PO
[2021-07-06 16:06] LABS: BASO % 0.7 % (0.0-1.0); EOS # 0.2 10^3/uL (0.0-0.5); EOS % 2.9 % (0.0-3.0); HEMATOCRIT 35.5 % (36.0-47.0); HEMOGLOBIN 10.7 g/dl (12.0-15.5); LYMPH # 1.7 10^3/uL (1.5-5.0); LYMPH % 29.4 % (24.0-44.0); MEAN CORPUSCULAR HGB CONC 30.1 g/dl (32.0-36.5); MEAN CORPUSCULAR VOLUME 86.2 fl (80.0-96.0); MONO # 0.5 10^3/uL (0.0-0.8); MONO % 8.1 % (2.0-8.0); NEUTROPHILS # 3.5 10^3/uL (1.5-8.5); NEUTROPHILS % 58.7 % (36.0-66.0); PLATELET COUNT, AUTOMATED 262 10^3/uL (150-450); RED BLOOD COUNT 4.12 10^6/uL (4.00-5.40); WHITE BLOOD COUNT 5.9 10^3/uL (4.0-10.0)
[2021-07-06 16:07] LABS: HEMATOCRIT 35.5 % (36.0-47.0)
[2021-07-06 16:27] LABS: ALBUMIN 3.7 GM/DL (3.2-5.2); ALT/SGPT 19 U/L (12-78); BILIRUBIN,TOTAL 0.4 MG/DL (0.2-1.0); BLOOD UREA NITROGEN 8 MG/DL (7-18); CARBON DIOXIDE LEVEL 29 MEQ/L (21-32); CHLORIDE LEVEL 107 MEQ/L (98-107); CREATININE FOR GFR 0.59 MG/DL (0.55-1.30); FERRITIN 6 NG/ML (8-252); GLOMERULAR FILTRATION RATE > 60.0 (>60); GLUCOSE, FASTING 75 MG/DL (70-100); IRON (FE) 40 UG/DL (50-170); MAGNESIUM LEVEL 1.6 MG/DL (1.8-2.4); PHOSPHORUS LEVEL 3.4 MG/DL (2.5-4.9); POTASSIUM SERUM 3.8 MEQ/L (3.5-5.1); SODIUM LEVEL 142 MEQ/L (136-145); TOTAL IRON BINDING CAPACITY 502 UG/DL (250-450); TOTAL PROTEIN 7.3 GM/DL (6.4-8.2)
[2021-07-08 10:44] LABS: VITAMIN B12 LEVEL 223 PG/ML (247-911)
== END ==
LOC: M LAB 13:39
PROVIDERS: ATTEND Physician Assistant Surgical
DX: E55.9 Vitamin D deficiency, unspecified (principal); Z98.84 Bariatric surgery status; K91.2 Postsurgical malabsorption, not elsewhere classified; Z86.39 Personal history of other endocrine, nutritional and metabolic disease

== ENCOUNTER → 2021-08-01 | Outpatient (CLI) | payer OTHER, MEDICAID | LOC: M LABSMTC 09:24 | PROVIDERS: ATTEND Anesthesiology | DX: Z01.812 Encounter for preprocedural laboratory examination (principal); Z20.822 Contact with and (suspected) exposure to COVID-19 ==

== ENCOUNTER → 2021-08-29 | Outpatient (CLI) | payer OTHER, MEDICAID ==
[~2021-08-29] MED LIST changes: +FERR325T81 PO; +ZOLO50TA PO
== END ==
LOC: M LABSMTC 10:30
PROVIDERS: ATTEND Anesthesiology
DX: Z01.818 Encounter for other preprocedural examination (principal); Z11.52 Encounter for screening for COVID-19

== ENCOUNTER 2021-09-03 06:46 | Day surgery (SDC) | payer OTHER, MEDICAID ==
[~2021-09-03] VITALS: Ht 162.6 cm; Wt 76.8 kg
[2021-09-03] MEDS ORDERED: BUPIVACAINE HCL 0.25% 30ML VIAL As Ordered ONE (07:07)
[2021-09-03] MEDS ORDERED: DESFLURANE 240 ML INHALANT As Ordered ONE (07:11)
[2021-09-03] MEDS ORDERED: LIDOCAINE 2% 100MG/5ML SDV (FOR ANES.) As Ordered ONE (07:16)
[2021-09-03] MEDS ORDERED: ROCURONIUM BROMIDE 50 MG/5 ML VIAL As Ordered ONE (07:16)
[2021-09-03] MEDS ORDERED: propofoL 200 MG/20 ML VIAL As Ordered ONE (07:16)
[2021-09-03] MEDS ORDERED: fentaNYL 100 MCG/2 ML INJECTION (J3010) As Ordered ONE ×2 (07:16→07:49)
[2021-09-03] MEDS ORDERED: ONDANSETRON 4MG/2ML VIAL As Ordered ONE (07:17)
[2021-09-03] MEDS ORDERED: dexameTHASONE 4 MG/ML 1ML VIAL (J1100 PER 1MG) As Ordered ONE (07:17)
[2021-09-03] MEDS ORDERED: MIDAZOLAM INJ 2MG/2ML VIAL (J2250 PER 1MG) As Ordered ONE (07:17)
[2021-09-03] MEDS ORDERED: ACETAMINOPHEN 1000MG 100ML IV BTL (OFIRMEV) (J0131 PER 10MG) As Ordered ONE (08:34)
[2021-09-03] MEDS ORDERED: SUGAMMADEX SODIUM 500 MG/5 ML VIAL (BRIDION) As Ordered ONE ×2 (08:35→08:54)
[2021-09-03] MEDS ORDERED: ONDANSETRON 4MG/2ML VIAL IV PRN (09:25)
[2021-09-03] MEDS ORDERED: HYDROMORPHONE HCL 0.5 MG/ 0.5 ML SYRINGE (J1170 PER 1) IV PRN (09:25)
[2021-09-03] MEDS ORDERED: oxyCODONE 5MG TAB PO PRN (09:25)
[2021-09-03] MEDS ORDERED: LR 1,000 ML IV SCH (09:25)
[2021-09-03] MEDS ORDERED: fentaNYL 100 MCG/2 ML INJECTION (J3010) IV PRN (09:25)
[2021-09-03] MEDS ORDERED: METOCLOPRAMIDE INJ 10MG/2ML VIAL (J2765 PER 1) IV PRN (09:25)
[2021-09-03] MEDS ORDERED: ACETAMINOPHEN TAB 650MG DOSE (2X325MG) PO PRN (09:55)
[2021-09-03] MEDS ORDERED: IBUPROFEN 400MG TAB PO PRN (09:55)
[2021-09-03] MEDS ORDERED: NORCO, ANEXSIA 5/325MG TABLET (HYDROcodone/ACETAMINOPHEN) PO PRN (10:00)
--- NOTE | 2021-09-03 10:37 | RO ---
OPERATIVE NOTE DATE OF OPERATION: 09/03/2021 PREOPERATIVE DIAGNOSIS: Symptomatic gallstones. POSTOPERATIVE DIAGNOSIS: Symptomatic gallstones. PROCEDURE: Laparoscopic cholecystectomy. SURGEON: MICHELLE FENG MD ANESTHESIA: General. INDICATIONS FOR THE PROCEDURE: The patient is a 26-year-old woman with a history of some upper abdominal discomfort who was found to have multiple gallstones by ultrasound. She is now for a laparoscopic cholecystectomy. DESCRIPTION OF PROCEDURE: The patient was placed on the operating table in the supine position. She was placed under general endotracheal anesthesia. The patient's abdomen was prepped and draped in a sterile fashion. 0.25% Marcaine was infiltrated at each of the trocar sites as needed. A short supraumbilical midline incision was made and the Veress needle was inserted. After a positive hanging drop test, the abdomen was insufflated with carbon dioxide gas. The fascia was then incised in the midline and a 12 mm port was placed. The laparoscope was inserted. Initial examination showed a normal appearing liver. The gallbladder was fairly thin-walled and of normal coloration. The jejunal limb from the Yojana-en-Y gastric bypass was noted in the left upper quadrant. Visualized portions of the small and large bowel were otherwise normal. A 5 mm port was placed in the left upper quadrant and two 5 mm ports were placed in the right upper quadrant. Graspers were inserted. Patient was tilted to a reverse Trendelenburg position and rolled slightly to the left. The gallbladder was grasped and elevated. Dissection was begun at the gallbladder neck using a hook cautery. The peritoneum was opened and the tissues around the gallbladder neck and cystic duct were dissected. The cystic duct was clearly identified. The duct was fairly short and the common bile duct was clearly seen. The cholecystic artery was also identified and dissected free. Both structures were then doubly clipped with Hemoclips and divided. The gallbladder was then dissected free from the gallbladder bed using cautery dissection. The gallbladder was perforated and some thin bile was released into the subhepatic space. The remaining bile was suctioned from the gallbladder and the subhepatic space was irrigated until clear. The gallbladder was then dissected completely from the gallbladder bed and placed in an Endopouch. The gallbladder bed was inspected and there was no evidence of bleeding or bile leak. The patient was returned to a flat position. The abdomen was deflated and the trocars were removed. The gallbladder was recovered through the supraumbilical site which necessitated extending the fascial incision somewhat to allow the passage of the stones. The gallbladder was sent for permanent pathology. The fascia was closed with a running suture of 2-0 PDS. The skin incisions were all closed with buried 4-0 Vicryl and Steri-Strips. Light dressings were applied. The patient tolerated the procedure well without apparent complication. She was awakened in the Operating Room, extubated and moved to the Recovery Room in stable condition.
[2021-09-03 11:00] VITALS: BP 147/71
[2021-09-03] MEDS ORDERED: OXYC1TAB23 PO (18:04)
== END 2021-09-03 11:23 | disposition home or self-care (01) ==
LOC: M SDC 06:46
PROVIDERS: ATTEND Surgery
DX: K80.20 Calculus of gallbladder without cholecystitis without obstruction (principal); Z98.84 Bariatric surgery status; D50.9 Iron deficiency anemia, unspecified; F41.9 Anxiety disorder, unspecified; Z79.899 Other long term (current) drug therapy
CPT/HCPCS: 47562; 81025; 88304; J0131; J1100; J2250; J2405; J3010

== ENCOUNTER → 2022-09-02 | Outpatient (REF) | payer OTHER, MEDICAID ==
[~2022-09-02] MED LIST changes: -OMEP-221; +OMEP40CA5; +OXYC1TAB23 PO
== END ==
LOC: M LAB REF 16:28
PROVIDERS: ATTEND Nurse Practitioner Family
DX: J02.9 Acute pharyngitis, unspecified (principal)

== ENCOUNTER → 2022-10-01 | Outpatient (REF) | payer OTHER, MEDICAID ==
[2022-10-01 17:23] LABS: BASO # 0.1 10^3/uL (0.0-0.2); BASO % 0.8 % (0.0-1.0); EOS # 0.1 10^3/uL (0.0-0.5); EOS % 1.9 % (0.0-3.0); HEMATOCRIT 37.6 % (36.0-47.0); HEMOGLOBIN 11.4 g/dl (12.0-15.5); LYMPH # 1.9 10^3/uL (1.5-5.0); LYMPH % 29.9 % (24.0-44.0); MEAN CORPUSCULAR HEMOGLOBIN 25.3 pg (27.0-33.0); MEAN CORPUSCULAR HGB CONC 30.3 g/dl (32.0-36.5); MEAN CORPUSCULAR VOLUME 83.4 fl (80.0-96.0); MONO # 0.5 10^3/uL (0.0-0.8); MONO % 7.9 % (2.0-8.0); NEUTROPHILS # 3.8 10^3/uL (1.5-8.5); NEUTROPHILS % 59.2 % (36.0-66.0); PLATELET COUNT, AUTOMATED 254 10^3/uL (150-450); RED BLOOD COUNT 4.51 10^6/uL (4.00-5.40); WHITE BLOOD COUNT 6.4 10^3/uL (4.0-10.0)
[2022-10-01 17:30] LABS: ALBUMIN 4.1 G/DL (3.2-5.2); ALKALINE PHOSPHATASE 124 U/L (46-116); ALT/SGPT 19 U/L (7.0-40); AST/SGOT 16 U/L (<34); BILIRUBIN,TOTAL 0.5 MG/DL (0.3-1.2); BLOOD UREA NITROGEN 9 MG/DL (9-23); CALCIUM LEVEL 9.4 MG/DL (8.5-10.1); CARBON DIOXIDE LEVEL 29 MMOL/L (20-31); CHLORIDE LEVEL 106 MMOL/L (98-107); CHOLESTEROL LEVEL 168 MG/DL (<200); CHOLESTEROL RISK RATIO 3.06 (<5); CREATININE FOR GFR 0.62 MG/DL (0.55-1.30); GLOMERULAR FILTRATION RATE > 60.0 (>60); GLUCOSE, FASTING 79 MG/DL (60-100); HDL CHOLESTEROL 54.8 MG/DL (>40); LDL CHOLESTEROL 93.2 MG/DL (<100); NON-HDL-C 113 MG/DL; POTASSIUM SERUM 4.6 MMOL/L (3.5-5.1); SODIUM LEVEL 141 MMOL/L (136-145); TOTAL PROTEIN 7.6 G/DL (5.7-8.2); TRIGLYCERIDES LEVEL 100 MG/DL (<150)
[2022-10-01 18:22] LABS: HEMOGLOBIN A1c 4.8 % (4.0-6.0)
[2022-10-01 18:54] LABS: THYROID STIMULATING HORMONE 0.726 uIU/ML (0.55-4.78)
[2022-10-01 20:49] LABS: FREE T4 1.13 NG/DL (0.89-1.76); TOTAL 25(OH) VITAMIN D 15.4 NG/ML (20.0-100.0)
== END ==
LOC: M LAB REF 16:28
PROVIDERS: ATTEND Nurse Practitioner Family
DX: Z13.228 Encounter for screening for other metabolic disorders (principal)

== ENCOUNTER → 2022-10-06 | Outpatient (REF) | payer OTHER, MEDICAID | LOC: M LAB REF 16:16 | PROVIDERS: ATTEND Nurse Practitioner Family | DX: L02.91 Cutaneous abscess, unspecified (principal) ==

== ENCOUNTER 2022-12-27 22:04 | Emergency (ER) | payer OTHER ==
[~2022-12-27] VITALS: Ht 162.6 cm; Wt 90.8 kg
[2022-12-27 22:05] VITALS: BP 146/88
[2022-12-27] MEDS ORDERED: CITA10TA7 (22:27)
[2022-12-28] MEDS ORDERED: BACTRIM 160MG/800MG DS TAB PO ONE (01:35)
[2022-12-28] MEDS ORDERED: BACT800T5 PO (01:41)
== END 2022-12-28 01:50 | disposition home or self-care (01) ==
LOC: M ED 22:04
DX: L03.116 Cellulitis of left lower limb (principal); Z98.84 Bariatric surgery status; Z79.899 Other long term (current) drug therapy

== ENCOUNTER → 2023-01-05 | Outpatient (REF) | payer OTHER, MEDICAID ==
[~2023-01-05] MED LIST changes: +BACT800T5 PO; +CITA10TA7
== END ==
LOC: M SFHCWAGY 17:33
PROVIDERS: ATTEND Nurse Practitioner Family
DX: Z12.4 Encounter for screening for malignant neoplasm of cervix (principal)
CPT/HCPCS: 87624; G0123

== ENCOUNTER → 2023-02-19 | Outpatient (REF) | payer OTHER, MEDICAID | LOC: M PLALAB 15:53 | PROVIDERS: ATTEND Advanced Practice Midwife | DX: R87.612 Low grade squamous intraepithelial lesion on cytologic smear of cervix (LGSIL) (principal); R87.810 Cervical high risk human papillomavirus (HPV) DNA test positive ==

== ENCOUNTER → 2023-06-23 | Outpatient (REF) | payer OTHER, MEDICAID ==
[2023-06-23 14:31] LABS: TOTAL PROTEIN,RANDOM URINE 25.2 MG/DL (0.0-14.0)
[2023-06-23 14:50] LABS: CREATININE,RANDOM URINE 283.9 MG/DL
== END ==
LOC: M PLALAB 10:15
PROVIDERS: ATTEND Advanced Practice Midwife
DX: Z34.92 Encounter for supervision of normal pregnancy, unspecified, second trimester (principal)

== ENCOUNTER → 2023-07-15 | Outpatient (CLI) | payer MEDICAID ==
[2023-07-15 12:07] LABS: HEMOGLOBIN A1c 4.9 % (4.0-6.0)
[2023-07-15 12:15] LABS: URIC ACID 3.1 MG/DL (3.1-7.8)
[2023-07-15 12:17] LABS: LDH LACTATE DEHYDROGENASE 128 U/L (120-246)
[2023-07-15 12:18] LABS: ALT/SGPT 13 U/L (7.0-40); AST/SGOT 9 U/L (<34); BILIRUBIN,TOTAL 0.2 MG/DL (0.3-1.2); CREATININE FOR GFR 0.49 MG/DL (0.55-1.30); GLOMERULAR FILTRATION RATE > 60.0 (>60); TOTAL 25(OH) VITAMIN D 22.5 NG/ML (20.0-100.0)
[2023-07-15 12:20] LABS: FOLATE > 24.00 NG/ML (>5.4); VITAMIN B12 LEVEL 216 PG/ML (211-911)
== END ==
LOC: M PLALAB 08:47
PROVIDERS: ATTEND Advanced Practice Midwife
DX: O99.840 Bariatric surgery status complicating pregnancy, unspecified trimester (principal); Z3A.00 Weeks of gestation of pregnancy not specified

== ENCOUNTER → 2023-08-10 | Outpatient (CLI) | payer OTHER, MEDICAID | LOC: M WHC 08:35 | PROVIDERS: ATTEND Advanced Practice Midwife | DX: Z34.92 Encounter for supervision of normal pregnancy, unspecified, second trimester (principal); Z3A.24 24 weeks gestation of pregnancy ==

== ENCOUNTER → 2023-09-30 | Outpatient (CLI) | payer MEDICAID, OTHER ==
[2023-09-30 15:58] LABS: HEMATOCRIT 27.6 % (36.0-47.0); HEMOGLOBIN 8.6 g/dl (12.0-15.5); MEAN CORPUSCULAR HEMOGLOBIN 24.8 pg (27.0-33.0); MEAN CORPUSCULAR HGB CONC 31.2 g/dl (32.0-36.5); MEAN CORPUSCULAR VOLUME 79.5 fl (80.0-96.0); PLATELET COUNT, AUTOMATED 212 10^3/uL (150-450); RED BLOOD COUNT 3.47 10^6/uL (4.00-5.40); WHITE BLOOD COUNT 11.9 10^3/uL (4.0-10.0)
== END ==
LOC: M PLALAB 14:17
PROVIDERS: ATTEND Advanced Practice Midwife
DX: Z34.92 Encounter for supervision of normal pregnancy, unspecified, second trimester (principal); Z3A.00 Weeks of gestation of pregnancy not specified

== ENCOUNTER 2023-10-06 08:31 | Outpatient (CLI) | payer MEDICAID ==
[~2023-10-06] VITALS: Ht 162.6 cm; Wt 102.2 kg
[2023-10-06 09:00] VITALS: BP 128/60; O2SAT 100
[2023-10-06] MEDS: IRON SUCROSE 500 MG in NS 250 ML OVER 4 HRS IV ONE (09:40)
[2023-10-06] MEDS: ACETAMINOPHEN 500 MG TAB PO ONE (09:40)
[2023-10-06] MEDS: diphenhydrAMINE 25MG CAP PO ONE (09:40)
[2023-10-06 10:45] VITALS: BP 140/71; O2SAT 100
[2023-10-06 11:45] VITALS: BP 137/64; O2SAT 100
[2023-10-06 12:45] VITALS: BP 114/64; O2SAT 100
[2023-10-06 13:35] VITALS: BP 130/75; O2SAT 100
== END 2023-10-06 13:44 | disposition home or self-care (01) ==
LOC: M INFU 08:31
PROVIDERS: ATTEND Advanced Practice Midwife
DX: D64.9 Anemia, unspecified (principal)
CPT/HCPCS: 96365; 96366; J1756

== ENCOUNTER → 2023-10-19 | Outpatient (CLI) | payer MEDICAID, OTHER ==
[2023-10-19 16:23] LABS: HEMATOCRIT 29.9 % (36.0-47.0); HEMOGLOBIN 9.3 g/dl (12.0-15.5); MEAN CORPUSCULAR HEMOGLOBIN 25.4 pg (27.0-33.0); MEAN CORPUSCULAR HGB CONC 31.1 g/dl (32.0-36.5); MEAN CORPUSCULAR VOLUME 81.7 fl (80.0-96.0); PLATELET COUNT, AUTOMATED 194 10^3/uL (150-450); RED BLOOD COUNT 3.66 10^6/uL (4.00-5.40); WHITE BLOOD COUNT 10.7 10^3/uL (4.0-10.0)
== END ==
LOC: M PLALAB 13:08
PROVIDERS: ATTEND Obstetrics & Gynecology
DX: O99.019 Anemia complicating pregnancy, unspecified trimester (principal); Z3A.00 Weeks of gestation of pregnancy not specified

== ENCOUNTER → 2023-11-05 | Outpatient (REF) | payer MEDICAID, OTHER | LOC: M SFHCWAGY 10:06 | PROVIDERS: ATTEND Advanced Practice Midwife | DX: Z36.85 Encounter for antenatal screening for Streptococcus B (principal); Z3A.36 36 weeks gestation of pregnancy ==

== ENCOUNTER 2023-12-03 13:18 | Inpatient (IN) | payer OTHER, MEDICAID ==
[2023-12-03] VITALS (19 sets, daily range): BP systolic 112–168; BP diastolic 53–85; O2SAT 96
[~2023-12-03] VITALS: Ht 162.6 cm; Wt 107.0 kg
[2023-12-03] MEDS ORDERED: IRON65TA2 PO (13:37)
[2023-12-03] MEDS ORDERED: VALA1TAB5 PO (13:37)
[2023-12-03] MEDS ORDERED: HOME MED LIST COMPLETE! XX SCH (13:40)
[2023-12-03 18:09] LABS: HEMATOCRIT 33.1 % (36.0-47.0); HEMOGLOBIN 10.5 g/dl (12.0-15.5); MEAN CORPUSCULAR HEMOGLOBIN 25.1 pg (27.0-33.0); MEAN CORPUSCULAR HGB CONC 31.7 g/dl (32.0-36.5); MEAN CORPUSCULAR VOLUME 79.2 fl (80.0-96.0); PLATELET COUNT, AUTOMATED 212 10^3/uL (150-450); RED BLOOD COUNT 4.18 10^6/uL (4.00-5.40); WHITE BLOOD COUNT 15.5 10^3/uL (4.0-10.0)
[2023-12-03] MEDS ORDERED: CARBOPROST TROMETHAMINE 250 MCG/ML AMP IM PRN (19:30)
[2023-12-03] MEDS ORDERED: LIDOCAINE 1% MDV 20ML VIAL INFIL PRN (19:30)
[2023-12-03] MEDS ORDERED: OXYTOCIN DRIP 30 UNITS in IV 1 EA IV PRN (19:30)
[2023-12-03] MEDS: LACTATED RINGER'S 1000 ML IV STA (21:30)
[2023-12-03] MEDS ORDERED: LR 500 ML IV PRN (22:05)
[2023-12-03] MEDS ORDERED: EPIDURAL/PCA KEYS XX PRN (22:05)
[2023-12-03] MEDS ORDERED: diphenhydrAMINE 50MG/ML VIAL IV PRN (22:05)
[2023-12-03] MEDS ORDERED: NALOXONE INJ 0.4MG/1ML VIAL IV PRN (22:05)
[2023-12-03] MEDS ORDERED: ONDANSETRON 4MG 2ML VIAL IV PRN (22:05)
[2023-12-03] MEDS: FENTANYL/ROPIVACAINE/NACL BAG 100 ML EPIDURAL SCH (22:35)
[2023-12-03] MEDS: LR 1,000 ML IV SCH (23:48)
[2023-12-04] VITALS (23 sets, daily range): BP systolic 111–137; BP diastolic 55–82; O2SAT 96–98
[2023-12-04] MEDS: ePHEDrine SULFATE 25 MG/5 ML(5MG/ML) SYRINGE IVP PRN (00:12)
[2023-12-04] MEDS ORDERED: IBUPROFEN 600MG TAB PO PRN (02:10)
[2023-12-04] MEDS ORDERED: CALCIUM CARBONATE 500 MG CHEW U/D PO PRN (02:10)
[2023-12-04] MEDS: LR 1,000 ML IV SCH (02:10)
[2023-12-04] MEDS ORDERED: RHOGAM 300MCG (1500IU) INJ IM SCH (02:10)
[2023-12-04] MEDS ORDERED: ONDANSETRON 4MG 2ML VIAL IV PRN (02:10)
[2023-12-04] MEDS ORDERED: ACETAMINOPHEN TAB 650MG DOSE (2X325MG) PO PRN (02:10)
[2023-12-04] MEDS ORDERED: ANUSOL HC CREAM 30GM TOP PRN (02:10)
[2023-12-04] MEDS ORDERED: DOCUSATE SODIUM 100MG CAPSULE PO PRN (02:10)
[2023-12-04] MEDS: OXYTOCIN DRIP 30 UNITS in IV 1 EA IV SCH (03:56)
[2023-12-04] MEDS ORDERED: OXYTOCIN 30UNITS IN 0.9% NaCl 500ML IV BAG As Ordered ONE (04:36)
[2023-12-04] MEDS: METHYLERGONOVINE MALEATE 0.2MG/ML 1ML VIAL IM PRN (04:47)
[2023-12-04] MEDS: TRANEXAMIC ACID INJection 1,000 MG in NS 100 ML IV PRN (05:02)
[2023-12-04] MEDS: METHYLERGONOVINE MALEATE 0.2 MG TAB PO SCH (05:31)
[2023-12-04] MEDS: ACETAMINOPHEN 500 MG TAB PO PRN (05:31)
[2023-12-04] MEDS: PRENATAL VITAMINS CHEWABLE TABLET PO SCH (08:26)
[2023-12-04 09:23] LABS: HEMATOCRIT 28.5 % (36.0-47.0); HEMOGLOBIN 9.1 g/dl (12.0-15.5); MEAN CORPUSCULAR HEMOGLOBIN 25.3 pg (27.0-33.0); MEAN CORPUSCULAR HGB CONC 31.9 g/dl (32.0-36.5); MEAN CORPUSCULAR VOLUME 79.4 fl (80.0-96.0); PLATELET COUNT, AUTOMATED 173 10^3/uL (150-450); RED BLOOD COUNT 3.59 10^6/uL (4.00-5.40); WHITE BLOOD COUNT 16.6 10^3/uL (4.0-10.0)
[2023-12-04 09:53] LABS: INR 1.09; PARTIAL THROMBOPLASTIN TIME 25.8 SECONDS (24.8-34.2); PROTHROMBIN TIME 13.8 SECONDS (12.5-14.5)
[2023-12-05 02:00] VITALS: BP 119/63; O2SAT 97
[2023-12-05 06:00] VITALS: BP 124/60; O2SAT 99
[2023-12-05 10:00] VITALS: BP 121/58; O2SAT 97
[2023-12-05 14:00] VITALS: BP 139/80; O2SAT 97
[2023-12-05 18:00] VITALS: BP 134/73; O2SAT 98
[2023-12-05] MEDS: IBUPROFEN 800 MG TAB PO PRN (19:15)
[2023-12-05] MEDS: DIBUCAINE 1% OINTMENT 30GM TOP PRN (19:33)
[2023-12-05 22:00] VITALS: BP 134/68; O2SAT 98
[2023-12-06 02:00] VITALS: BP 121/77; O2SAT 97
[2023-12-06 06:00] VITALS: BP 133/60; O2SAT 98
[2023-12-06] MEDS: MEASLES,MUMPS,RUBELLA VACCINE INJ (MMR-II) SC.IMMUN ONE (07:23)
[2023-12-06] MEDS: INFLUENZA QUADRIVALENT PF VACCINE 0.5ML SYRINGE IM.IMMUN ONE (09:23)
[2023-12-06 10:00] VITALS: BP 139/70; O2SAT 98
[2023-12-06] MEDS ORDERED: ACET-683 PO (11:27)
[2023-12-06] MEDS ORDERED: IBUP80TA PO (11:27)
== END 2023-12-06 12:33 | disposition home or self-care (01) | DRG 560 ==
LOC: M LDO 13:18 → M LDI 17:26 → M OBS 12-04 03:34
PROVIDERS: ADMIT Obstetrics & Gynecology; ATTEND Obstetrics & Gynecology
PROC: 10E0XZZ Delivery of Products of Conception, External Approach (ICD-10-PCS; principal; 2023-12-04)
PROC: 0HQ9XZZ Repair Perineum Skin, External Approach (ICD-10-PCS; 2023-12-04)
DX: O34.211 Maternal care for low transverse scar from previous cesarean delivery (principal); O72.2 Delayed and secondary postpartum hemorrhage; Z37.0 Single live birth; Z3A.40 40 weeks gestation of pregnancy; O48.0 Post-term pregnancy; O70.0 First degree perineal laceration during delivery

== ENCOUNTER → 2024-03-16 | Outpatient (REF) | payer OTHER, MEDICAID ==
[~2024-03-16] MED LIST changes: +ACET-683 PO; +IBUP80TA PO; +IRON65TA2 PO; +VALA1TAB5 PO
[2024-03-18 12:27] LABS: HPV APTIMA Not Detected (Not Detected)
== END ==
LOC: M SFHCWAGY 17:17
PROVIDERS: ATTEND Obstetrics & Gynecology
DX: Z12.4 Encounter for screening for malignant neoplasm of cervix (principal); R87.610 Atypical squamous cells of undetermined significance on cytologic smear of cervix (ASC-US)

== ENCOUNTER → 2024-05-30 | Outpatient (REF) | payer OTHER, MEDICAID ==
[~2024-05-30] MED LIST changes: +HOLTER MONITOR XX; +HYDR-3363 PO; +LEXA1TAB PO
[2024-05-30 19:11] LABS: BASO % 0.4 % (0.0-1.0); EOS # 0.1 10^3/uL (0.0-0.5); EOS % 1.2 % (0.0-3.0); HEMATOCRIT 34.8 % (36.0-47.0); HEMOGLOBIN 10.4 g/dl (12.0-15.5); LYMPH # 1.8 10^3/uL (1.5-5.0); LYMPH % 19.3 % (24.0-44.0); MEAN CORPUSCULAR HEMOGLOBIN 23.2 pg (27.0-33.0); MEAN CORPUSCULAR HGB CONC 29.9 g/dl (32.0-36.5); MEAN CORPUSCULAR VOLUME 77.5 fl (80.0-96.0); MONO # 0.6 10^3/uL (0.0-0.8); MONO % 6.4 % (2.0-8.0); NEUTROPHILS # 6.9 10^3/uL (1.5-8.5); NEUTROPHILS % 72.4 % (36.0-66.0); PLATELET COUNT, AUTOMATED 296 10^3/uL (150-450); RED BLOOD COUNT 4.49 10^6/uL (4.00-5.40); WHITE BLOOD COUNT 9.5 10^3/uL (4.0-10.0)
[2024-05-30 19:46] LABS: FERRITIN 3.6 NG/ML (7.3-270.7)
[2024-05-30 19:47] LABS: THYROID STIMULATING HORMONE 1.289 uIU/ML (0.55-4.78)
[2024-05-30 19:48] LABS: FOLATE 16.6 NG/ML (>5.4)
[2024-05-30 19:49] LABS: ALKALINE PHOSPHATASE 146 U/L (46-116); ALT/SGPT 15 U/L (7.0-40); AST/SGOT < 8 U/L (<34); BILIRUBIN,TOTAL 0.4 MG/DL (0.3-1.2); BLOOD UREA NITROGEN 7 MG/DL (9-23); CALCIUM LEVEL 9.9 MG/DL (8.5-10.1); CARBON DIOXIDE LEVEL 23 MMOL/L (20-31); CHLORIDE LEVEL 107 MMOL/L (98-107); CREATININE FOR GFR 0.56 MG/DL (0.55-1.30); GLOMERULAR FILTRATION RATE > 60.0 (>60); GLUCOSE, FASTING 85 MG/DL (60-100); IRON (FE) 38 UG/DL (50-170); PERCENT SATURATION 8.5 % (13.2-45.0); SODIUM LEVEL 138 MMOL/L (136-145); TOTAL IRON BINDING CAPACITY 449 UG/DL (250-425); TOTAL PROTEIN 7.5 G/DL (5.7-8.2); VITAMIN B12 LEVEL 326 PG/ML (211-911)
== END ==
LOC: M LAB REF 16:55
PROVIDERS: ATTEND Nurse Practitioner Family
DX: D64.9 Anemia, unspecified (principal); R42 Dizziness and giddiness

== ENCOUNTER 2024-06-01 08:12 | Emergency (ER) | payer OTHER, MEDICAID ==
[~2024-06-01] VITALS: Ht 162.6 cm; Wt 98.7 kg
[~2024-06-01 08:12] MED LIST changes: -HOLTER MONITOR XX; -HYDR-3363 PO; -LEXA1TAB PO
[2024-06-01] MEDS ORDERED: HYDR-3363 PO (08:23)
[2024-06-01] MEDS ORDERED: LEXA1TAB PO (08:23)
[2024-06-01 09:44] LABS: BASO % 0.5 % (0.0-1.0); EOS # 0.1 10^3/uL (0.0-0.5); EOS % 1.3 % (0.0-3.0); HEMATOCRIT 35.7 % (36.0-47.0); HEMOGLOBIN 10.8 g/dl (12.0-15.5); LYMPH # 1.6 10^3/uL (1.5-5.0); LYMPH % 20.1 % (24.0-44.0); MEAN CORPUSCULAR HEMOGLOBIN 23.3 pg (27.0-33.0); MEAN CORPUSCULAR HGB CONC 30.3 g/dl (32.0-36.5); MEAN CORPUSCULAR VOLUME 77.1 fl (80.0-96.0); MONO # 0.5 10^3/uL (0.0-0.8); MONO % 6.3 % (2.0-8.0); NEUTROPHILS # 5.6 10^3/uL (1.5-8.5); NEUTROPHILS % 71.4 % (36.0-66.0); PLATELET COUNT, AUTOMATED 256 10^3/uL (150-450); RED BLOOD COUNT 4.63 10^6/uL (4.00-5.40); WHITE BLOOD COUNT 7.8 10^3/uL (4.0-10.0)
[2024-06-01 10:15] LABS: HCG, SERUM QUALITATIVE NEGATIVE (NEGATIVE)
[2024-06-01 10:17] LABS: BLOOD UREA NITROGEN 8 MG/DL (9-23); CALCIUM LEVEL 9.1 MG/DL (8.5-10.1); CARBON DIOXIDE LEVEL 26 MMOL/L (20-31); CHLORIDE LEVEL 106 MMOL/L (98-107); CK-MB VALUE MASS < 1.0 NG/ML (<3.6); CPK CREATINE PHOSPHOKINASE 41 U/L (34-145); CREATININE FOR GFR 0.54 MG/DL (0.55-1.30); GLOMERULAR FILTRATION RATE > 60.0 (>60); GLUCOSE, FASTING 83 MG/DL (60-100); MAGNESIUM LEVEL 1.8 MG/DL (1.8-2.4); MB/CK RELATIVE INDEX 2.43 (< OR =4); SODIUM LEVEL 135 MMOL/L (136-145)
[2024-06-01 10:19] LABS: THYROID STIMULATING HORMONE 0.936 uIU/ML (0.55-4.78)
[2024-06-01 11:04] LABS: CK-MB VALUE MASS < 1.0 NG/ML (<3.6)
[2024-06-01 11:05] LABS: CPK CREATINE PHOSPHOKINASE 45 U/L (34-145); MB/CK RELATIVE INDEX 2.22 (< OR =4)
[2024-06-01] MEDS ORDERED: HOLTER MONITOR XX (11:14)
[2024-06-01] MEDS ORDERED: FERR325T3 PO (11:15)
[2024-06-01 11:23] VITALS: BP 125/65; TEMP 97.5; O2SAT 99
== END 2024-06-01 11:30 | disposition home or self-care (01) ==
LOC: M ED 08:12
DX: R55 Syncope and collapse (principal); Z79.899 Other long term (current) drug therapy

== ENCOUNTER → 2024-06-04 | Outpatient (CLI) | payer OTHER ==
[~2024-06-04] MED LIST changes: +HOLTER MONITOR XX; +HYDR-3363 PO; +LEXA1TAB PO
== END ==
LOC: M EKG 13:49
PROVIDERS: ATTEND Nurse Practitioner Family
DX: R00.2 Palpitations (principal)

== ENCOUNTER → 2024-07-11 | Outpatient (CLI) | payer OTHER | LOC: M WHC 06:46 | PROVIDERS: ATTEND Obstetrics & Gynecology | DX: R10.2 Pelvic and perineal pain (principal); Z97.5 Presence of (intrauterine) contraceptive device ==

== ENCOUNTER → 2024-07-21 | Outpatient (CLI) | payer OTHER ==
[~2024-07-21] VITALS: Ht 162.6 cm; Wt 94.0 kg
[~2024-07-21] MED LIST changes: +ALBUTEROL SULFATE 2.5MG/0.5ML INH NEB SOLN INH PRN; +EPINEPHrine INJ 1 MG/ML 1ML AMP IM PRN; +NS 1,000 ML IV SCH; +diphenhydrAMINE 50MG/ML VIAL IV PRN; +methylPREDNISolone 125MG 2ML VIAL IV PRN
[2024-07-21 14:30] VITALS: BP 133/87; O2SAT 97
[2024-07-21] MEDS: IRON SUCROSE 300 MG in NS 250 ML OVER 90 MIN. IV ONE (14:56)
[2024-07-21 16:30] VITALS: BP 128/79; O2SAT 97
== END ==
LOC: M INFU 13:48
PROVIDERS: ATTEND Internal Medicine Hematology
DX: D50.8 Other iron deficiency anemias (principal)
CPT/HCPCS: 96365; 96366; J1756

== ENCOUNTER 2024-08-04 14:30 | Outpatient (CLI) | payer OTHER ==
[~2024-08-04] VITALS: Ht 162.6 cm; Wt 95.5 kg
[2024-08-04 14:20] VITALS: BP 127/68; O2SAT 100
[2024-08-04] MEDS: IRON SUCROSE 300 MG in NS 250 ML IV ONE (14:46)
[2024-08-04 16:23] VITALS: BP 141/89; O2SAT 99
== END 2024-08-04 16:25 ==
LOC: M INFU 14:30
PROVIDERS: ATTEND Internal Medicine Hematology
DX: D50.8 Other iron deficiency anemias (principal)
CPT/HCPCS: 96365; 96366; J1756

== ENCOUNTER 2024-08-18 13:20 | Outpatient (CLI) | payer OTHER ==
[~2024-08-18] VITALS: Ht 162.6 cm; Wt 92.3 kg
[~2024-08-18 13:20] MED LIST changes: +NS (Normal Saline) 0.9% 1,000 ML IV SCH; -NS 1,000 ML IV SCH
[2024-08-18 13:30] VITALS: BP 147/83; O2SAT 97
[2024-08-18] MEDS: IRON SUCROSE 300 MG in NS 250 ML IV ONE (13:45)
[2024-08-18 15:23] VITALS: BP 108/68; O2SAT 100
== END 2024-08-18 15:23 | disposition home or self-care (01) ==
LOC: M INFU 13:20
PROVIDERS: ATTEND Internal Medicine Hematology
DX: D50.8 Other iron deficiency anemias (principal)
CPT/HCPCS: 96365; J1756

== ENCOUNTER 2024-08-25 13:25 | Outpatient (CLI) | payer OTHER ==
[~2024-08-25] VITALS: Ht 162.6 cm; Wt 92.7 kg
[~2024-08-25 13:25] MED LIST changes: +IRON SUCROSE 300 MG in NS 250 ML IV ONE
[2024-08-25 13:36] VITALS: BP 117/64; O2SAT 96
[2024-08-25] MEDS: IRON SUCROSE 300 MG in NS 250 ML IV ONE (14:10)
[2024-08-25 15:40] VITALS: BP 141/91; O2SAT 99
== END 2024-08-25 15:45 | disposition home or self-care (01) ==
LOC: M INFU 13:25
PROVIDERS: ATTEND Internal Medicine Hematology
DX: D50.8 Other iron deficiency anemias (principal)
CPT/HCPCS: 96365; J1756

== ENCOUNTER → 2025-01-06 | Outpatient (CLI) | payer OTHER ==
[~2025-01-06] MED LIST changes: -ALBUTEROL SULFATE 2.5MG/0.5ML INH NEB SOLN INH PRN; -EPINEPHrine INJ 1 MG/ML 1ML AMP IM PRN; -IRON SUCROSE 300 MG in NS 250 ML IV ONE; -NS (Normal Saline) 0.9% 1,000 ML IV SCH; -diphenhydrAMINE 50MG/ML VIAL IV PRN; -methylPREDNISolone 125MG 2ML VIAL IV PRN
== END ==
LOC: M WUC 11:34
PROVIDERS: ATTEND Student in an Organized Health Care Education/Training Program
DX: M25.571 Pain in right ankle and joints of right foot (principal)

== ENCOUNTER → 2025-06-07 | Outpatient (CLI) | payer OTHER, MEDICAID ==
[~2025-06-07] MED LIST changes: -IBUP-1022 PO; +IBUP600T42 PO
[2025-06-07 15:28] LABS: PLATELET COUNT, AUTOMATED 237 10^3/uL (150-450)
[2025-06-07 16:23] LABS: HIV 1&2 SCREEN NEGATIVE (NEGATIVE)
[2025-06-07 16:28] LABS: Trichomonas vaginalis (AMP) NOT DETECTED (NEGATIVE)
[2025-06-07 16:32] LABS: HEPATITIS C VIRUS ABY INDEX 0.06 INDEX (<0.8)
[2025-06-07 16:51] LABS: GC DNA AMPLIFICATION NEGATIVE (NEGATIVE)
== END ==
LOC: M PLALAB 13:21
PROVIDERS: ATTEND Advanced Practice Midwife
DX: Z34.81 Encounter for supervision of other normal pregnancy, first trimester (principal)

== ENCOUNTER → 2025-07-04 | Outpatient (REF) | payer OTHER, MEDICAID | LOC: M SFHCWAGY 09:59 | PROVIDERS: ATTEND Advanced Practice Midwife | DX: Z34.81 Encounter for supervision of other normal pregnancy, first trimester (principal) ==

== ENCOUNTER → 2025-08-03 | Outpatient (CLI) | payer OTHER ==
[2025-08-03 10:49] LABS: LDH LACTATE DEHYDROGENASE 118 U/L (120-246); TOTAL 25(OH) VITAMIN D 22.3 NG/ML (20.0-100.0)
[2025-08-03 10:50] LABS: ALT/SGPT 13 U/L (7.0-40); AST/SGOT 9 U/L (<34); CREATININE FOR GFR 0.46 MG/DL (0.55-1.30); GLOMERULAR FILTRATION RATE > 90.0 (>60); IRON (FE) 85 UG/DL (50-170); PERCENT SATURATION 23.0 % (13.2-45.0)
[2025-08-03 10:52] LABS: VITAMIN B12 LEVEL 251 PG/ML (211-911)
[2025-08-03 11:04] LABS: ESTIMATED AVERAGE GLUCOSE 91.0 MG/DL (60-110)
== END ==
LOC: M PLALAB 08:33
PROVIDERS: ATTEND Advanced Practice Midwife
DX: O99.842 Bariatric surgery status complicating pregnancy, second trimester (principal); Z3A.15 15 weeks gestation of pregnancy